=== PATIENT | female | born 1995 | race Caucasian/White ===

== ENCOUNTER 2016-08-18 08:27 | Emergency (ER) | payer OTHER ==
--- NOTE | ~2016-08-18 | ER ---
PATIENT'S NAME: ROSIBEL ROJAS [facility] AGE: 21 Y [address] ROOM: [place] [address] LOCATION: [facility] ADMIT DATE: 08/18/2016 ER/Outpatient Report DISCHARGE DATE: 08/18/2016 FAMILY PHYSICIAN: PHYSICIAN, NO ATTENDING PHYSICIAN: Fatou Vidales Time of Arrival: 0827 hours. Time of Evaluation: 0838 hours. IDENTIFICATION: A 21-year-old female. CHIEF COMPLAINT: Nausea and vomiting. HISTORY OF PRESENT ILLNESS: The patient has had nausea and vomiting since 1 a.m. She has vomited approximately 5 times. No diarrhea or constipation. She has some epigastric abdominal discomfort. No fever or chills. She has a headache. ALLERGIES: NO KNOWN DRUG ALLERGIES. CURRENT MEDICATIONS: Denies. MEDICAL PROBLEMS: Denies. No prior surgeries or hospitalizations. SOCIAL HISTORY: The patient lives here in [place]. She works at [employer] and at the [employer], children range from infants to 3 years old. No ill contacts. Tobacco use, denies. Alcohol use, one time per week. Drug use, denies. REVIEW OF SYSTEMS: All systems reviewed and negative other than what is noted in the HPI. Last menstrual period was 2 weeks ago. She is a . FAMILY HISTORY: No pertinent family history identified. No recent traveling. Again, no ill contacts. PHYSICAL EXAMINATION: VITAL SIGNS: Height 6 feet and 2 inches, weight 103.5 kg, blood pressure 119/76, pulse 93, respirations 16, temperature 99, and saturations 95%. PATIENT'S NAME: ROSIBEL ROJAS [facility] AGE: 21 Y [address] ROOM: [place] [address] LOCATION: [facility] ADMIT DATE: 08/18/2016 ER/Outpatient Report DISCHARGE DATE: 08/18/2016 FAMILY PHYSICIAN: PHYSICIAN, NO ATTENDING PHYSICIAN: Fatou Vidales GENERAL: A pleasant 21-year-old female, in no acute distress. HEENT: Head: Normocephalic and atraumatic. Ears: TMs translucent both ears. Eyes: Pupils equal and reactive to light and accommodation. Extraocular movements intact. Nose: Mucosa pink. No lesions. Mouth: No lesions. Pharynx benign. NECK: Supple. No lymphadenopathy. No nuchal rigidity. LUNGS: Clear to auscultation. Breath sounds are equal. HEART: Regular rate and rhythm. No murmur, rub, or gallop. ABDOMEN: Bowel sounds present. Soft. Nondistended. No hepatosplenomegaly. No palpable masses. Tender to palpation diffusely. No rebound or guarding. SKIN: Martore[place], warm, and dry. No lesions or rashes noted. NEURO: The patient is alert and oriented x4. Cranial nerves II through XII grossly intact. Motor strength 5/5 throughout. Sensation is intact to light touch. No lower extremity edema. EMERGENCY DEPARTMENT COURSE: An IV was initiated. The patient was given 1 L of normal saline bolus and Zofran 4 mg IV. Her nausea improved, but she continued to have a headache, so was given 1 gram of Tylenol. She then became nauseous again, was given a second dose of Zofran as well as Protonix 40 mg IV and her symptoms improved significantly. LABORATORY DATA AND X-RAYS: Sodium 142, potassium 3.9, chloride 109, CO2 of 23, BUN 18, creatinine 0.8, blood sugar 118, liver enzymes normal, hCG less than 1, amylase 58, and lipase 108. Hemoglobin 15.9, hematocrit 46.8, platelets 245, white count 11.1, and 89% neutrophils. IMPRESSION: Nausea, vomiting, and epigastric pain, improved. PLAN: Clear liquids, small amounts at frequent intervals. Advance diet as tolerated. Zofran ODT 4 mg 1 p.o. q.6 hours p.r.n. for nausea, dispensed 10 with 0 refills; Tylenol p.r.n. for pain; and Prilosec 20 mg daily. Follow up with her physician of choice in 1 to 2 days. Follow up sooner if any problems or concerns and she will remain off work until her symptoms resolve. FATOU VIDALES MD CAR/modl PATIENT'S NAME: ROSIBEL ROJAS [facility] AGE: 21 Y [address] ROOM: [place] [address] LOCATION: [facility] ADMIT DATE: 08/18/2016 ER/Outpatient Report DISCHARGE DATE: 08/18/2016 FAMILY PHYSICIAN: NATI DEL ROSARIO ATTENDING PHYSICIAN: Fatou Vidales /[id number] d: 08/18/16 2104 t: 08/19/16 0650, OUTPATIENT REPORT
[2016-08-18 08:56] LABS: BASOPHIL % 0.2 %; EOSINOPHIL # 0.1 K/uL (0.0-0.5); EOSINOPHIL % 0.5 %; HEMATOCRIT 46.8 % (33.0-46.0); HEMOGLOBIN 15.9 g/dL (11.0-15.0); IMMATURE GRANULOCYTE % 0.3 %; LYMPHOCYTE # 0.6 K/uL (0.8-4.0); LYMPHOCYTE % 5.2 %; MCH 29.1 pg (27.0-34.0); MCV 85.7 fl (83.0-98.0); MONOCYTE # 0.4 K/uL (0.0-1.0); MPV 9.2 fl (9.4-12.4); NEUTROPHIL # (ANC) 9.9 K/uL (1.8-7.8); NEUTROPHIL % 89.8 %; NRBC % 0 /100WBC (0-0.00); PLATELET COUNT 245 K/uL (150-450); RBC 5.46 M/uL (3.50-5.00); RDW-CV 13.9 % (11.9-14.6); WBC 11.1 K/uL (4.0-11.0)
[2016-08-18 09:14] LABS: ALBUMIN 3.6 gm/dL (3.5-5.0); ALK PHOS 58 IU/L (33-138); ALT 18 IU/L (12-78); ANION GAP 13.9 (10.0-19.0); AST 15 IU/L (10-40); BLOOD UREA NITROGEN 18 mg/dL (6-24); CALCIUM 8.4 mg/dL (8.5-10.5); CHLORIDE 109 mMol/L (96-110); CO2 23 mMol/L (22-32); CREATININE 0.8 mg/dL (0.5-1.1); ESTIMATED GFR (MDRD EQUATION) > 60; POTASSIUM 3.9 mMol/L (3.7-5.1); SODIUM 142 mMol/L (135-145); TOTAL BILIRUBIN 0.4 mg/dL (0.0-1.5); TOTAL PROTEIN 7.4 g/dL (6.0-8.4)
== END 2016-08-18 11:16 | disposition disaster alternative care site (69) ==
LOC: GMED 08:27
PROVIDERS: Family Medicine
DX: R11.2 Nausea with vomiting, unspecified (principal); R10.13 Epigastric pain
CPT/HCPCS: C9113; J2405; J7030